=== PATIENT | female | born 1950 | race Caucasian/White ===

== ENCOUNTER → 2016-11-08 | Outpatient (CLI) | payer OTHER, BC | LOC: RAD 09:25 | DX: Z12.31 Encounter for screening mammogram for malignant neoplasm of breast (principal) ==

== ENCOUNTER → 2018-04-05 | Outpatient (CLI) | payer OTHER, BC | LOC: RAD 04:54 | DX: Z12.31 Encounter for screening mammogram for malignant neoplasm of breast (principal) ==

== ENCOUNTER → 2019-04-09 | Outpatient (CLI) | payer OTHER, BC | LOC: RAD 00:49 | DX: Z12.31 Encounter for screening mammogram for malignant neoplasm of breast (principal) ==

== ENCOUNTER → 2020-04-29 | Outpatient (CLI) | payer OTHER, BC | LOC: BC 09:14 | PROVIDERS: ATTEND Internal Medicine | DX: Z12.31 Encounter for screening mammogram for malignant neoplasm of breast (principal); N64.89 Other specified disorders of breast ==

== ENCOUNTER → 2021-05-03 | Outpatient (CLI) | payer OTHER | LOC: BC 07:12 | PROVIDERS: ATTEND Internal Medicine | DX: Z12.31 Encounter for screening mammogram for malignant neoplasm of breast (principal) ==

== ENCOUNTER → 2021-05-06 | Outpatient (CLI) | payer OTHER | LOC: ULTRA 12:11 | PROVIDERS: ATTEND Internal Medicine | DX: N64.89 Other specified disorders of breast (principal); N63.10 Unspecified lump in the right breast, unspecified quadrant; R92.8 Other abnormal and inconclusive findings on diagnostic imaging of breast ==

== ENCOUNTER → 2021-05-09 | Outpatient (CLI) | payer OTHER ==
--- NOTE | 2021-05-10 18:06 | PATH ---
[facility] [address] [place] [address] PATHOLOGY RPT PROCEDURE Name: CHEN HDZ Room #: REG [facility] M.R.#: [id number] Admission: 05/09/21 Date of : 50 Discharge: Report #: [id number] Path Case #: [id number] [facility] Accession Number: [id number] . 01 Material submitted: . breast - RIGHT BREAST BIOPSY. Modifiers: right . 01 Clinical history: . RIGHT BREAST MICROCALCIFICATIONS . 02 Diagnosis: Breast, right breast posterior, stereotactic needle core biopsy: - Predominantly sclerosed and hyalinized fibroadenoma with coarse microcalcifications. - Background breast tissue showing non-proliferative fibrocystic changes with stromal fibrosis and focal mild adenosis with rare calcifications. - Negative for atypia, or carcinoma in situ, or invasive malignancy. (IUV:patient monitor; 05/10/2021) [facility] 05/10/2021 1737 Local . 02 Electronically signed: . Sparkle Fenton MD, Pathologist NPI- [id number] . 01 Gross description: . Received in formalin labeled "Chen Hdz and right breast biopsy". Received are multiple white-yellow fibroadipose breast cores ranging from 0.6-1.4 cm in length and 0.3-0.4 cm in diameter. The specimen is entirely submitted in cassettes A1-A5. The specimen was collected on 05/09/2021 at 11:50 AM and placed in the formalin and 12 PM. The specimen will be removed from formalin on 05/09/2021 at 11:40 PM. The specimen will be in formalin more than 6 hours in length and 72 hours.([facility]; 05/09/2021) [facility] 05/10/2021 1442 Local . 02 Pathologist provided ICD-10: D24.1, N60.11, N60.31, N60.21 . 02 CPT . 142333 Specimen Comment: A courtesy copy of this report has been sent to [phone] Specimen Comment: [id number] Specimen Comment: Report sent to / DR MATHIS Performed at: [address] [facility], [place], [place] [id number] MD Vitaly Negrete MD Phone: [phone] [address] [address] PATHOLOGY RPT PROCEDURE Name: CHEN HDZ Room #: REG KATIE Romero#: [id number] Admission: 05/09/21 Date of : 50 Discharge: Report #: [id number] Path Case #: [id number] [facility]formed at: 02 [facility] [address] [facility], [place], [place] [id number] MD Sparkle Fenton MD Phone: [phone]
== END | disposition home or self-care (01) ==
LOC: RAD 10:40
PROVIDERS: ATTEND Internal Medicine
DX: R92.1 Mammographic calcification found on diagnostic imaging of breast (principal); D24.1 Benign neoplasm of right breast; N60.31 Fibrosclerosis of right breast; N60.21 Fibroadenosis of right breast

== ENCOUNTER → 2021-10-19 | Outpatient (CLI) | payer OTHER | LOC: BC 14:29 | PROVIDERS: ATTEND Internal Medicine | DX: R92.8 Other abnormal and inconclusive findings on diagnostic imaging of breast (principal) ==